=== PATIENT | female | born 1995 | race Two or more races ===

== ENCOUNTER 2020-06-06 09:02 | Outpatient (CLI) | payer OTHER | END 2020-06-06 09:05 | disposition home or self-care (01) | LOC: PPH VACUNA 09:02 | DX: Z23 Encounter for immunization (principal) ==

== ENCOUNTER 2022-05-30 09:27 | Emergency (ER) | payer OTHER ==
[~2022-05-30] VITALS: Ht 160 cm; Wt 108.9 kg
[2022-05-30] MEDS ORDERED: TUSSIN DM SYRU118 ML PO (12:02)
[2022-05-30] MEDS ORDERED: ZITHROMAX TRI-500 MG PO (12:02)
== END 2022-05-30 12:32 | disposition home or self-care (01) ==
LOC: ER 09:27
DX: B34.9 Viral infection, unspecified (principal); Z20.822 Contact with and (suspected) exposure to COVID-19